=== PATIENT | male | born 2000 | race Caucasian/White ===

== ENCOUNTER 2023-08-15 06:25 | Inpatient (IN) | payer OTHER ==
[~2023-08-15] VITALS: Ht 182.9 cm; Wt 83.3 kg
[2023-08-15 07:03] LABS: BASO # 0.02 K/mm3 (0.02-0.10); EOS # 0.08 K/mm3 (0.04-0.40); EOS % 0.8 % (0.0-4.0); HEMATOCRIT 50.7 % (42.0-52.0); HEMOGLOBIN 17.8 g/dL (13.5-18.0); LYMPH# 1.29 K/mm3 (1.50-4.00); MEAN CELL VOLUME 86 fl (78-100); MEAN CORPUSCULAR HEMOGLOBIN 30 pg (27-31); MEAN CORPUSCULAR HGB CONC 35 g/dL (33-37); MEAN PLATELET VOLUME 8.9 fl (7.4-10.4); NEU # 7.73 K/mm3 (1.40-6.50); PLATELET COUNT 263 K/mm3 (130-400); RED BLOOD COUNT 5.93 M/mm3 (4.20-5.60); RED CELL DISTRIBUTION WIDTH 11.7 % (11.5-14.5); WHITE BLOOD COUNT 10.3 K/mm3 (4.8-10.8)
[2023-08-15 07:10] LABS: ALBUMIN 4.6 g/dL (3.5-5.0)
[2023-08-15 07:12] LABS: CALCIUM 9.5 mg/dL (8.3-10.5)
[2023-08-15 07:13] LABS: TOTAL PROTEIN 7.8 g/dL (6.4-8.3)
[2023-08-15 09:43] LABS: URINE WBC 0 /hpf (0-3)
[2023-08-15 10:14] LABS: PH-URINE 6.5 (5.0 - 8.0); URINE APPEARANCE CLEAR (CLEAR); URINE BILIRUBIN NEGATIVE (NEGATIVE); URINE BLOOD NEGATIVE (NEGATIVE); URINE COLOR YELLOW (YELLOW); URINE GLUCOSE NEGATIVE (NEGATIVE); URINE KETONE 2+ (NEGATIVE); URINE LEUKOCYTE ESTERASE NEGATIVE (NEGATIVE); URINE NITRATE NEGATIVE (NEGATIVE); URINE PROTEIN(semi-quant) NEGATIVE (NEGATIVE)
[2023-08-15 10:28] LABS: URINE MUCUS PRESENT (NOT PRESENT)
--- NOTE | 2023-08-15 11:23 | NUR ---
COMPLETED [place] RISK SCALE WITH PT, DENIES CURRENT OR PREVIOUS SI. DISCUSSED WITH PROVIDER IRMA DELEON - PT DOES NOT NEED ANY SUICIDAL OBSERVATION AT THIS TIME. ORDER D/C'D
[2023-08-15 11:54] VITALS: BP 145/84
--- NOTE | 2023-08-15 12:45 | NUR ---
PATIENT AND FIANCE AT BEDSIDE REPORTING PAIN CONTINUING AND FEELING "DEHYDRATED". NOTIFIED IRMA LOGAN. NEW ORDER OBTAINED.
[2023-08-15 15:02] VITALS: BP 156/93
--- NOTE | 2023-08-15 15:39 | NUR ---
PT TOLERATING PO WATER WELL, DENIES NAUSEA SINCE THIS MORNING. DISCUSSED PROGRESSION WITH PROVIDER, ATTEMPTING PLAIN CRACKERS AT THIS TIME. IF PT CONTINUES TO TOLERATE WELL, WILL ORDER SOFT AND BLAND DINNER TRAY.
[2023-08-15 16:30] VITALS: BP 138/87
[2023-08-15 19:26] VITALS: BP 163/93
--- NOTE | 2023-08-15 19:30 | NUR ---
Report received from Radha WHITAKER. Calls and states "I think I need to go back to the other pain pills". IV Dilaudid due and given at this time for report of abdominal pain 04/07. States he feels like his abdomen is a balloon that is going to pop. States having some nausea, no emesis. Zofran given IV at this time. CWAW score of 6/10. Assessment completed. Using urinal at bedside with dark yellow urine noted.
[2023-08-15 21:54] VITALS: BP 162/96
--- NOTE | 2023-08-15 23:22 | NUR ---
Rests with eyes closed. Respirations even and non-labored. No signs of distress. IVF infusing at 125 ML/HR.
--- NOTE | 2023-08-15 23:52 | NUR ---
Vomitted 200 ML of yellow liquid bile. CWAW score 10. RN notified to give IV Ativan. Diet changed back to PO and patient made aware. Requested to sit in the shower awhile. CRIME DATA SPECIALIST in to assist. Bedding changed. Pain 03/07. Dilaudid given SIVP.
[2023-08-15 23:58] VITALS: BP 152/83
[2023-08-16] VITALS (7 sets, daily range): BP systolic 144–158; BP diastolic 80–100
--- NOTE | 2023-08-16 00:15 | NUR ---
Rachid SOLIS notified of CWAW of 10 and emesis.
--- NOTE | 2023-08-16 01:17 | NUR ---
Rests quietly with eyes closed. Respirations even and non-labored. No signs of pain/distress.
--- NOTE | 2023-08-16 03:58 | NUR ---
Rang call light wanting some water to drink. States he feels like he is "dehydrating". Explained to patient that he needs to rest his gut and that the IVF were keeping him from dehydration. Rates pain 6/10, denies need for analgesic at this time. No tremors or diaphoresis noted.
--- NOTE | 2023-08-16 05:09 | NUR ---
Rests quietly with eyes closed. RR even and non-labored. No signs of distress.
--- NOTE | 2023-08-16 05:18 | NUR ---
Calls and states his mouth is so dry and nose is dry, "I need a drink". Ice chips provided. Educated again on gut rest.
--- NOTE | 2023-08-16 06:10 | NUR ---
Currently rests with eyes closed. IVF infusing at 125 Ml/HR. No further N/V. Has not requested any more analgesic since 2329. Remains NPO with occasional ice chips.
--- NOTE | 2023-08-16 06:56 | NUR ---
Report to Sayra WHITAKER.
--- NOTE | 2023-08-16 07:00 | NUR ---
Report received from PN. [place]
[2023-08-16 07:08] LABS: HEMATOCRIT 48.3 % (42.0-52.0); HEMOGLOBIN 16.8 g/dL (13.5-18.0); MEAN CELL VOLUME 88 fl (78-100); MEAN CORPUSCULAR HEMOGLOBIN 31 pg (27-31); MEAN CORPUSCULAR HGB CONC 35 g/dL (33-37); MEAN PLATELET VOLUME 8.7 fl (7.4-10.4); PLATELET COUNT 198 K/mm3 (130-400); RED BLOOD COUNT 5.51 M/mm3 (4.20-5.60); RED CELL DISTRIBUTION WIDTH 11.8 % (11.5-14.5); WHITE BLOOD COUNT 15.9 K/mm3 (4.8-10.8)
[2023-08-16 07:19] LABS: ALBUMIN 3.7 g/dL (3.5-5.0)
[2023-08-16 07:20] LABS: CALCIUM 8.5 mg/dL (8.3-10.5)
[2023-08-16 07:21] LABS: TOTAL PROTEIN 6.3 g/dL (6.4-8.3)
[2023-08-16 07:23] LABS: TOTAL BILIRUBIN 1.3 mg/dL (0.2-1.2)
[2023-08-16 07:44] LABS: LYMPHOCYTE 2 % (20-51); MONOCYTE 4 % (3-10); NEUTROPHILS 94 % (42-75)
--- NOTE | 2023-08-16 08:12 | NUR ---
ASsessment charted. PT is alert and orientedx4. No tremor noted, denies nausea, requesting water. Urine is dark yesica and clear. Discussed slow titration on diet and advancing incrementally, agreeable to plan. Will discuss with IRMA Suazo. Pain to LUQ 5/10, will give PRN pain meds and continue to monitor.
[2023-08-16 09:21] LABS: LIPASE > 1200 U/L (8-78)
--- NOTE | 2023-08-16 14:47 | NUR ---
Report called to ICU nurse Holli, SHERMAN at [facility]. Pt left with all belongings, mother took bags with her and will be following ambulance to [place]. Pt agreeable to plan, PRN pain meds given for transport. Criteria met.
== END 2023-08-16 14:40 | DRG 440 ==
LOC: ED 06:25 → MED/SURG 09:29
PROVIDERS: Nurse Practitioner; Physician Assistant; ADMIT Family Medicine
DX: K85.20 Alcohol induced acute pancreatitis without necrosis or infection (principal); F10.10 Alcohol abuse, uncomplicated; D72.829 Elevated white blood cell count, unspecified
CPT/HCPCS: C9113; J1170; J1885; J2060; J2405; J2543; J3010; J3370; J7030; J7050; Q9967

== ENCOUNTER → 2023-10-11 | Outpatient (CLI) | payer OTHER | LOC: PT 09:00 | DX: M25.562 Pain in left knee (principal) ==

== ENCOUNTER 2023-10-18 13:38 | Outpatient (RCR) | payer OTHER | END 2023-10-27 | disposition home or self-care (01) | LOC: PT | DX: M25.562 Pain in left knee (principal) ==

== ENCOUNTER 2024-03-27 14:11 | Inpatient (IN) | payer OTHER ==
[~2024-03-27] VITALS: Ht 182.9 cm; Wt 102.6 kg
[2024-03-27] MEDS ORDERED: Ondansetron 4 MG/2 ML VIAL IV ONE (14:45)
[2024-03-27] MEDS ORDERED: fentaNYL 100 MCG/2 ML VIAL IV ONE (14:45)
[2024-03-27 14:54] LABS: BASO # 0.02 K/mm3 (0.02-0.10); HEMATOCRIT 51.2 % (42.0-52.0); LYMPH# 0.95 K/mm3 (1.50-4.00); MEAN CELL VOLUME 83 fl (78-100); MEAN CORPUSCULAR HEMOGLOBIN 29 pg (27-31); MEAN CORPUSCULAR HGB CONC 35 g/dL (33-37); MEAN PLATELET VOLUME 8.7 fl (7.4-10.4); MONO # 0.79 K/mm3 (0.20-0.80); PLATELET COUNT 280 K/mm3 (130-400); RED BLOOD COUNT 6.15 M/mm3 (4.20-5.60); WHITE BLOOD COUNT 14.3 K/mm3 (4.8-10.8)
[2024-03-27] MEDS ORDERED: Iohexol 300 - 100 ML VIAL IV ONE (14:59)
[2024-03-27 15:07] LABS: ALBUMIN 4.8 g/dL (3.5-5.0)
[2024-03-27 15:08] LABS: CALCIUM 9.4 mg/dL (8.3-10.5)
[2024-03-27 15:09] LABS: TOTAL PROTEIN 7.8 g/dL (6.4-8.3)
[2024-03-27 15:11] LABS: TOTAL BILIRUBIN 0.8 mg/dL (0.2-1.2)
[2024-03-27] MEDS ORDERED: Ketorolac 30 MG/ML VIAL IV ONE (15:30)
[2024-03-27] MEDS ORDERED: HYDROmorphone 0.5 MG/0.5 ML SYRINGE IV ONE (16:00)
[2024-03-27] MEDS ORDERED: Pantoprazole 40 MG in NS 10 ML IV ONE (16:15)
[2024-03-27] MEDS ORDERED: Thiamine 100 MG TAB PO ONE (16:15)
[2024-03-27] MEDS ORDERED: Multivitamin TAB PO ONE (16:15)
[2024-03-27 16:30] VITALS: BP 162/93
[2024-03-27] MEDS ORDERED: HYDROmorphone 0.5 MG/0.5 ML SYRINGE IV PRN (17:15)
[2024-03-27] MEDS ORDERED: Naloxone 0.4 MG/ML VIAL IV PRN (17:15)
--- NOTE | 2024-03-27 18:24 | NUR ---
PT ADMITTED TO THE FLOOR AROUND 1730. PT WHEELED TO ROOM 204 THEN AMBULATED TO THE BED. PT IS UP AD ZAIRE IN ROOM. COMPLAINING OF 10/10 PAIN AND INSTRUCTED PATIENT HE COULD NOT RECEIVE MORE PAIN MEDICATIONS UNTIL 1800. IV FLUIDS INFUSING. INSTRUCTED AGAIN THAT HE WILL BE NPO OVERNIGHT AND CAN HAVE CLEAR LIQUIDS IN THE MORNING, PT VERBALIZED UNDERSTANDING. PT IN BED WITH CALL LIGHT IN REACH.
--- NOTE | 2024-03-27 18:43 | NUR ---
REPORT GIVEN TO SHERMAN ALBRECHT
--- NOTE | 2024-03-27 19:04 | NUR ---
recieved report from bertin bennett
--- NOTE | 2024-03-27 20:37 | NUR ---
pt alert and oriented x4, pt currently has room privlidges and is resting in bed at this time, pt inreased breathing rate after this nurse entered room reporting 10/10 pain, pain medication delivered on q2hr schedule prn. pt reporting some initial relief of pain medication but no substantial decrease in pain. pt assesed at this time without complication, bowel sounds hypoactive pt reports last intake by mouth of yesterday at lunch time. pt understands he is NPO until tomorrow morning in which we may advance to clear liquids. pt now resting in bed and denies any further needs.
[2024-03-27] MEDS ORDERED: Ketorolac 30 MG/ML VIAL IV SCH (21:45)
[2024-03-27 21:53] VITALS: BP 167/89
[2024-03-28 02:21] VITALS: BP 155/91
[2024-03-28 05:39] VITALS: BP 166/91
[2024-03-28] MEDS ORDERED: Pantoprazole 40 MG in NS 10 ML IV SCH ×2 (07:30→09:00)
--- NOTE | 2024-03-28 09:40 | NUR ---
report given to tennille bennett
[2024-03-28 10:00] VITALS: BP 160/73
[2024-03-28 10:54] LABS: EOS # 0.01 K/mm3 (0.04-0.40); EOS % 0.1 % (0.0-4.0); HEMATOCRIT 51.4 % (42.0-52.0); LYMPH# 0.68 K/mm3 (1.50-4.00); MEAN CELL VOLUME 85 fl (78-100); MEAN CORPUSCULAR HEMOGLOBIN 30 pg (27-31); MEAN CORPUSCULAR HGB CONC 35 g/dL (33-37); MEAN PLATELET VOLUME 8.6 fl (7.4-10.4); MONO # 0.85 K/mm3 (0.20-0.80); NEU # 13.63 K/mm3 (1.40-6.50); PLATELET COUNT 216 K/mm3 (130-400); RED BLOOD COUNT 6.06 M/mm3 (4.20-5.60); RED CELL DISTRIBUTION WIDTH 12.9 % (11.5-14.5); WHITE BLOOD COUNT 15.2 K/mm3 (4.8-10.8)
[2024-03-28 11:04] LABS: CALCIUM 8.7 mg/dL (8.3-10.5)
[2024-03-28 11:05] LABS: ALBUMIN 3.7 g/dL (3.5-5.0); SODIUM 136 mmol/L (136-145)
[2024-03-28 11:06] LABS: TOTAL PROTEIN 6.1 g/dL (6.4-8.3)
[2024-03-28 11:08] LABS: GLUCOSE 111 mg/dL (75-110)
[2024-03-28 11:09] LABS: CARBON DIOXIDE 22 mmol/L (22-29)
[2024-03-28 11:10] LABS: TOTAL BILIRUBIN 1.7 mg/dL (0.2-1.2)
[2024-03-28 11:11] LABS: AST-SGOT 29 U/L (5-34)
[2024-03-28 11:12] LABS: ALT/SGPT 40 U/L (0-55)
[2024-03-28 12:02] LABS: LIPASE > 1200 U/L (8-78)
[2024-03-28 14:45] VITALS: BP 156/101
[2024-03-28] MEDS ORDERED: Piperacillin/Tazobactam Sodium 3.375 GM in NS 100 ML IV SCH ×4 (15:45→18:00)
[2024-03-28] MEDS ORDERED: NS 1,000 ML IV SCH ×2 (16:15→18:15)
[2024-03-28 18:01] VITALS: BP 153/108
--- NOTE | 2024-03-28 20:00 | NUR ---
PT CALLED FOR PAIN MED BEFORE IT WAS DUE. PT WAS TOLD THAT THIS RN WOULD BRING THE MED IN WHEN IT WAS TIME. PT THEN CALLED AGAIN REQUESTING MEDS.
--- NOTE | 2024-03-28 21:45 | NUR ---
THIS RN WALKED UP TO ROOM TO DO ASSESSMENT AND GIVE MEDS. PT HAS VISITORS THIS RN COULD HEAR THE PT SPEAKING WITH. ON ENTERING THE ROOM THE PTS BEHAVIOR CHANGED AND THE PT STATED MULTIPLE TIMES THAT HE WAS IN A LOT OF PAIN AND PTS RESPIRATIONS BECAME VERY SHORT AND MORE SHALLOW.
[2024-03-28 22:15] VITALS: BP 160/92
[2024-03-28 23:30] LABS: HEMATOCRIT 46.3 % (42.0-52.0); MEAN PLATELET VOLUME 8.8 fl (7.4-10.4); RED BLOOD COUNT 5.38 M/mm3 (4.20-5.60); RED CELL DISTRIBUTION WIDTH 12.9 % (11.5-14.5); WHITE BLOOD COUNT 15.2 K/mm3 (4.8-10.8)
[2024-03-28 23:42] LABS: CALCIUM 7.9 mg/dL (8.3-10.5)
[2024-03-29 02:15] VITALS: BP 142/78
[2024-03-29 06:25] VITALS: BP 149/93
[2024-03-29] MEDS ORDERED: Ondansetron 4 MG/2 ML VIAL IV PRN (07:30)
[2024-03-29 08:31] LABS: BASO # 0.04 K/mm3 (0.02-0.10); EOS # 0.21 K/mm3 (0.04-0.40); EOS % 1.5 % (0.0-4.0); HEMATOCRIT 47.8 % (42.0-52.0); HEMOGLOBIN 16.2 g/dL (13.5-18.0); LYMPH# 1.08 K/mm3 (1.50-4.00); MEAN CELL VOLUME 86 fl (78-100); MEAN CORPUSCULAR HEMOGLOBIN 29 pg (27-31); MEAN CORPUSCULAR HGB CONC 34 g/dL (33-37); MEAN PLATELET VOLUME 8.7 fl (7.4-10.4); MONO # 0.91 K/mm3 (0.20-0.80); NEU # 11.86 K/mm3 (1.40-6.50); PLATELET COUNT 192 K/mm3 (130-400); RED BLOOD COUNT 5.53 M/mm3 (4.20-5.60); RED CELL DISTRIBUTION WIDTH 12.9 % (11.5-14.5); WHITE BLOOD COUNT 14.2 K/mm3 (4.8-10.8)
[2024-03-29 08:35] LABS: ALBUMIN 3.2 g/dL (3.5-5.0)
[2024-03-29 08:37] LABS: CALCIUM 8.3 mg/dL (8.3-10.5)
[2024-03-29 08:38] LABS: TOTAL PROTEIN 5.3 g/dL (6.4-8.3)
[2024-03-29 08:40] LABS: TOTAL BILIRUBIN 1.9 mg/dL (0.2-1.2)
[2024-03-29] MEDS ORDERED: HYDROmorphone 0.5 MG/0.5 ML SYRINGE IV PRN (09:00)
[2024-03-29 10:01] VITALS: BP 129/74
[2024-03-29 14:41] VITALS: BP 126/71
[2024-03-29] MEDS ORDERED: Acetaminophen 500 MG TAB PO PRN (17:45)
--- NOTE | 2024-03-29 18:00 | NUR ---
Pt attempted to eat jello with dinner, he states he was able to eat it ok but after trying the beef broth he said he was unable to eat anymore. He report the beef broth made his stomach upset and he reports feeling bloated. Fever noted around 1400, APPLIED BEHAVIOR SPECIALIST placed a cold wash cloth on his head which he reports it did help cool him down. Later right after trying jello about 5:15 he was asking for the A/C to be lowered because he was very hot, pt was also asking for pain medication stating his pain from eating and feeling bloated was sitting at about 8. Pain meds given at this time. Dr. Barry notified of the increasing fever. When nurse was in giving pain med she noticed that pt was very distended. Dr. Barry notified and a bladder scan was completed only getting about 32mL in his bladder. Pt is looking very puffy and stomach is distended. Lab order placed by Dr. Barry. ABD CT scan also ordered.
[2024-03-29 18:15] LABS: BASO # 0.04 K/mm3 (0.02-0.10); EOS # 0.16 K/mm3 (0.04-0.40); HEMATOCRIT 44.5 % (42.0-52.0); HEMOGLOBIN 15.7 g/dL (13.5-18.0); LYMPH# 1.05 K/mm3 (1.50-4.00); MEAN CELL VOLUME 85 fl (78-100); MEAN CORPUSCULAR HEMOGLOBIN 30 pg (27-31); MEAN CORPUSCULAR HGB CONC 35 g/dL (33-37); MEAN PLATELET VOLUME 8.6 fl (7.4-10.4); MONO # 0.93 K/mm3 (0.20-0.80); NEU # 13.71 K/mm3 (1.40-6.50); PLATELET COUNT 186 K/mm3 (130-400); RED BLOOD COUNT 5.26 M/mm3 (4.20-5.60); RED CELL DISTRIBUTION WIDTH 12.7 % (11.5-14.5)
[2024-03-29 18:23] LABS: ALBUMIN 3.3 g/dL (3.5-5.0)
[2024-03-29 18:25] LABS: CALCIUM 8.5 mg/dL (8.3-10.5)
[2024-03-29 18:26] LABS: TOTAL PROTEIN 5.3 g/dL (6.4-8.3)
[2024-03-29 18:28] LABS: TOTAL BILIRUBIN 1.8 mg/dL (0.2-1.2)
[2024-03-29 18:38] VITALS: BP 117/69
[2024-03-29] MEDS ORDERED: Iohexol 300 - 100 ML VIAL IV ONE (19:24)
--- NOTE | 2024-03-29 19:30 | NUR ---
Pt returned from CT. Continues to c/o diffuse abd pain and bloating. Friends at bedside.
[2024-03-29] MEDS ORDERED: Potassium Chloride 100 ML IV ONE (21:00)
[2024-03-29] MEDS ORDERED: Furosemide 40 MG/4 ML VIAL IV ONE (21:00)
--- NOTE | 2024-03-29 21:00 | NUR ---
CT result obtained from JOSAFAT. GIANNA contacting [facility] for transfer.
--- NOTE | 2024-03-29 21:40 | NUR ---
Pt has been accepted by Dr Franz to [facility]. Awaiting bed assignment.
[2024-03-29 21:44] VITALS: BP 132/69
[2024-03-29 22:17] LABS: URINE APPEARANCE CLEAR (CLEAR); URINE BILIRUBIN NEGATIVE (NEGATIVE); URINE BLOOD NEGATIVE (NEGATIVE); URINE COLOR YELLOW (YELLOW); URINE GLUCOSE NEGATIVE (NEGATIVE); URINE KETONE NEGATIVE (NEGATIVE); URINE LEUKOCYTE ESTERASE NEGATIVE (NEGATIVE); URINE NITRATE NEGATIVE (NEGATIVE); URINE PROTEIN(semi-quant) NEGATIVE (NEGATIVE); URINE WBC 0-1 /hpf (0-3)
--- NOTE | 2024-03-29 23:50 | NUR ---
Report called to SHERMAN Jarrett at [facility]. Questions answered.
--- NOTE | 2024-03-29 23:58 | NUR ---
[facility] supervisior notified to request patient transfer.
--- NOTE | 2024-03-30 00:45 | NUR ---
Pt left with ems for [facility] room 553. Pt alert and oriented. Skin cool and moist. All belonging sent with patient.
== END 2024-03-30 01:00 | disposition short-term general hospital (02) | DRG 439 ==
LOC: ED 14:11 → MED/SURG 16:01
PROVIDERS: Family Medicine; ADMIT Family Medicine
DX: K85.90 Acute pancreatitis without necrosis or infection, unspecified (principal); J98.11 Atelectasis; N17.9 Acute kidney failure, unspecified; E87.6 Hypokalemia; R74.01 Elevation of levels of liver transaminase levels; K21.9 Gastro-esophageal reflux disease without esophagitis; E86.0 Dehydration
CPT/HCPCS: J1170; J1650; J1885; J1940; J2405; J2470; J2543; J3010; J3480; J7030; J7120; Q9967